=== PATIENT | male | born 1990 | race Caucasian/White ===

== ENCOUNTER 2024-02-26 14:34 | Observation (INO) | payer BC ==
--- NOTE | 2024-02-26 15:51 | ED ---
Nausea/Vomiting/Diarrhea HPI - General Source: patient, RN notes reviewed Mode of arrival: wheelchair Limitations: no limitations <Oriana Minaya - Last Filed: 02/26/24 15:51> <Migdalia Esparza - Last Filed: 02/29/24 16:33> - General Chief complaint: Nausea/Vomiting/Diarrhea Stated complaint: Flu like symptoms, dehydration Time Seen by Provider: 02/26/24 15:51 - History of Present Illness Initial comments: Quick [id number] male presenting with nausea/vomiting/diarrhea x 3 days. States he has not been able to keep anything down and feels as though he is dehydrated. (Oriana Minaya) 34-year-old male presenting with chief complaint of nausea vomiting and diarrhea. Symptoms have been ongoing for the last 3 to 4 days. He states that he is unable to keep down any food or fluids and is concerned that he may be dehydrated. He admits to generalized bodyaches. No cough congestion or sore throat. He admits to chills. No known fever. No localized abdominal pain. He does admit to daily marijuana use. (Migdalia Esparza) - Related Data Home Medications Medication Instructions Recorded Confirmed Albuterol Inhaler [Ventolin Hfa 2 puff INHALATION RT-Q6H PRN 02/27/24 02/27/24 Inhaler] Budesonide/Formoterol Fumarate 2 puff INHALATION RT-BID 02/27/24 02/27/24 [Symbicort 160-4.5 Mcg Inhaler] Dupilumab [Dupixent Pen] 300 mg SQ Q14D 02/27/24 02/27/24 Hydrocortisone Cream 1 applic TOPICAL BID PRN 02/27/24 02/27/24 [Hydrocortisone 1% Cream] Ketoconazole 2% Shampoo [Nizoral] 1 applic TOPICAL DIRECTED 02/27/24 02/27/24 Triamcinolone 0.1% Cream [Kenalog 1 applicatio TOPICAL BID PRN 02/27/24 02/27/24 0.1% Cream] Previous Rx's Medication Instructions Recorded Ondansetron Odt [Zofran Odt] 4 mg PO Q8HR PRN #20 tab 02/26/24 Acetaminophen Tab [Tylenol] 650 mg PO Q6HR PRN tab 02/27/24 Allergies Allergy/AdvReac Type Severity Reaction Status Date / Time No Known Allergies Allergy Verified 02/27/24 09:05 Review of Systems ROS Other: All systems not noted in ROS Statement are negative. <Oriana Minaya - Last Filed: 02/26/24 15:51> ROS Other: All systems not noted in ROS Statement are negative. <Migdalia Esparza - Last Filed: 02/29/24 16:33> ROS Statement: Those systems with pertinent positive or pertinent negative responses have been documented in the HPI. Past Medical History Past Medical History: Asthma Past Drug Use History: Marijuana <Oriana Minaya - Last Filed: 02/26/24 15:51> General Exam Limitations: no limitations <Oriana Minaya - Last Filed: 02/26/24 15:51> Limitations: no limitations General appearance: alert, in no apparent distress Head exam: Present: atraumatic, normocephalic, normal inspection Eye exam: Present: normal appearance, EOMI Neck exam: Present: normal inspection. Absent: meningismus Respiratory exam: Present: normal lung sounds bilaterally. Absent: respiratory distress, wheezes, rales, rhonchi, stridor Cardiovascular Exam: Present: regular rate, normal rhythm, normal heart sounds. Absent: systolic murmur, diastolic murmur, rubs, gallop, clicks GI/Abdominal exam: Present: soft. Absent: distended, tenderness, guarding, rebound, rigid Neurological exam: Present: alert, oriented X3 Psychiatric exam: Present: normal affect, normal mood Skin exam: Present: warm, dry <Radha Esparzatami - Last Filed: 02/29/24 16:33> - General Exam Comments Initial Comments: Visual Physical Exam Vital signs reviewed General: Well-appearing, nontoxic, no acute distress. Head: Normocephalic, atraumatic Eyes: PERRLA, EOMI ENT: Airway patent Chest: Nonlabored breathing Skin: No visual rash, normal skin tone Neuro: Alert and oriented 3 Musculoskeletal: No gross abnormalities (Oriana Minaya) Course Vital Signs 02/26/24 02/26/24 02/27/24 14:41 17:27 02:52 Temperature 97.6 F 98.0 F Pulse Rate 87 84 78 Respiratory 18 24 18 Rate Blood Pressure 150/107 129/97 137/84 O2 Sat by Pulse 100 100 96 Oximetry 02/27/24 08:49 Temperature 98 F Pulse Rate 86 Respiratory 18 Rate Blood Pressure 146/90 O2 Sat by Pulse 99 Oximetry Medical Decision Making <Oriana Minaya - Last Filed: 02/26/24 15:51> - Lab Data Result diagrams: 02/26/24 17:37 02/26/24 17:37 <IsaiasRadhatami - Last Filed: 02/29/24 16:33> - Medical Decision Making I completed the quick note portion of this chart signed Oriana Minaya PA-C (Oriana Minaya) Was pt. sent in by a medical professional or institution ([facility], [facility], urgent care, hospital, or residential...) When possible be specific @ -No Did you speak to anyone other than the patient for history (EMS, parent, family, police, friend...)? What history was obtained from this source @ -No Did you review nursing and triage notes (agree or disagree)? Why? @ -I reviewed and agree with nursing and triage notes Were old charts reviewed (outside hosp., previous admission, EMS record, old EKG, old radiological studies, urgent care reports/EKG's, residential records)? Report findings @ -No old charts were reviewed Differential Diagnosis (chest pain, altered mental status, abdominal pain women, abdominal pain men, vaginal bleeding, weakness, fever, dyspnea, syncope, headache, dizziness, GI bleed, back pain, seizure, CVA, palpatations, mental health, musculoskeletal)? @ -Differential includes gastroenteritis, cannabinoid hyperemesis syndrome, bowel obstruction, diverticulitis, C. difficile, this is not an all-inclusive list EKG interpreted by me (3pts min.). @ -As above X-rays interpreted by me (1pt min.). @ -None done CT interpreted by me (1pt min.). @ -None done U/S interpreted by me (1pt. min.). @ -Ultrasound shows unremarkable right upper quadrant What testing was considered but not performed or refused? (CT, X-rays, U/S, labs)? Why? @ -None What meds were considered but not given or refused? Why? @ -None Did you discuss the management of the patient with other professionals (professionals i.e. , [facility], [facility], lab, RT, psych nurse, social media community manager, molding sander, teacher, tactical response group officer, rn case manager hospice)? Give summary @ -My attending spoke with Dr. Bansal who accepts admission Was smoking cessation discussed for >3mins.? @ -No Was critical care preformed (if so, how long)? @ -No Were there social determinants of health that impacted care today? How? (Homelessness, low income, unemployed, alcoholism, drug addiction, transportation, low edu. Level, literacy, decrease access to med. care, care home, rehab)? @ -No Was there de-escalation of care discussed even if they declined (Discuss DNR or withdrawal of care, Hospice)? DNR status @ -No What co-morbidities impacted this encounter? (DM, HTN, Smoking, COPD, CAD, Cancer, CVA, ARF, Chemo, Hep., AIDS, mental health diagnosis, sleep apnea, morbid obesity)? @ -None Was patient admitted / discharged? Hospital course, mention meds given and route, prescriptions, significant lab abnormalities, going to OR and other pert inent info. @ -34-year-old male presenting with chief complaint of nausea vomiting and diarrhea ongoing for the last 3 to 4 days. Workup is initiated by triage patient is later placed in room and examined by myself. No leukocytosis or anemia. He is positive for COVID. Lactic acid 2.6. Anion gap 22 carbon dioxide 15. Patient is receiving IV fluids for dehydration. He is also receiving antiemetics. Bilirubin 1.7 AST 82 ALT 85, ultrasound is obtained which is unremarkable. Likely secondary to dehydration and mild starvation. Patient is still experiencing intractable nausea and vomiting after the use of antiemetics. He is unable to tolerate oral intake and will be admitted for observation. He is agreeable with this plan. I discussed this case with my attending Dr. Villalba Undiagnosed new problem with uncertain prognosis? @ -No Drug Therapy requiring intensive monitoring for toxicity (Heparin, Nitro, Insulin, Cardizem)? @ -No Were any procedures done? @ -No Diagnosis/symptom? @ -Intractable nausea and vomiting, metabolic acidosis, dehydration Acute, or Chronic, or Acute on Chronic? @ -Acute Uncomplicated (without systemic symptoms) or Complicated (systemic symptoms)? @ -Complicated Side effects of treatment? @ -No Exacerbation, Progression, or Severe Exacerbation? @ -No Poses a threat to life or bodily function? How? (Chest pain, [place], CO, pneumonia, PE, COPD, DKA, ARF, appy, cholecystitis, CVA, Diverticulitis, Homicidal, Suicidal, threat to staff... and all critical care pts) @ -Yes (Migdalia Esparza) - Lab Data Lab Results 02/26/24 02/26/24 02/26/24 Range/Units 16:45 17:37 17:37 WBC 8.6 (3.8-10.6) k/uL RBC 5.61 (4.30-5.90) m/uL Hgb 16.5 (13.0-17.5) gm/dL Hct 48.7 (39.0-53.0) % MCV 86.9 (80.0-100.0) fL MCH 29.5 (25.0-35.0) pg MCHC 33.9 (31.0-37.0) g/dL RDW 12.8 (11.5-15.5) % Plt Count 271 (150-450) k/uL MPV 7.7 Neutrophils % 76 % Lymphocytes % 14 % Monocytes % 6 % Eosinophils % 1 % Basophils % 0 % Neutrophils # 6.6 (1.3-7.7) k/uL Lymphocytes # 1.2 (1.0-4.8) k/uL Monocytes # 0.5 (0-1.0) k/uL Eosinophils # 0.1 (0-0.7) k/uL Basophils # 0.0 (0-0.2) k/uL Sodium 140 (137-145) mmol/L Potassium 4.7 (3.5-5.1) mmol/L Chloride 103 (98-107) mmol/L Carbon Dioxide 15 L (22-30) mmol/L Anion Gap 22 mmol/L BUN 23 H (9-20) mg/dL Creatinine 1.01 (0.66-1.25) mg/dL Est GFR (CKD-EPI)AfAm >90 (>60 ml/min/1.73 sqM) Est GFR (CKD-EPI)NonAf >90 (>60 ml/min/1.73 sqM) Glucose 114 H (74-99) mg/dL Lactic Ac Sepsis Rflx Plasma Lactic Acid Raghu (0.7-2.0) mmol/L Calcium 10.2 (8.4-10.2) mg/dL Total Bilirubin 1.7 H (0.2-1.3) mg/dL AST 82 H (17-59) U/L ALT 85 H (4-49) U/L Alkaline Phosphatase 118 (38-126) U/L Total Protein 9.1 H (6.3-8.2) g/dL Albumin 5.3 H (3.5-5.0) g/dL Lipase 130 (23-300) U/L Urine Color Urine Appearance (Clear) Urine pH (5.0-8.0) Ur Specific [place] (1.001-1.035) Urine Protein (Negative) Urine Glucose (UA) (Negative) Urine Ketones (Negative) Urine Blood (Negative) Urine Nitrite (Negative) Urine Bilirubin (Negative) Urine Urobilinogen (<2.0) mg/dL Ur Leukocyte Esterase (Negative) Urine RBC (0-5) /hpf Urine WBC (0-5) /hpf Urine Mucus (None) /hpf Hepatitis A IgM Ab (Nonreactive) Hep Bs Antigen (Nonreactive) Hep B Core IgM Ab (Nonreactive) Hep C IgG Ab (Nonreactive) Influenza Type A (PCR) Not Detected (Not Detectd) Influenza Type B (PCR) Not Detected (Not Detectd) RSV (PCR) Not Detected (Not Detectd) SARS-CoV-2 (PCR) Detected A (Not Detectd) 02/26/24 02/26/24 02/26/24 Range/Units 17:37 18:14 20:05 WBC (3.8-10.6) k/uL RBC (4.30-5.90) m/uL Hgb (13.0-17.5) gm/dL Hct (39.0-53.0) % MCV (80.0-100.0) fL MCH (25.0-35.0) pg MCHC (31.0-37.0) g/dL RDW (11.5-15.5) % Plt Count (150-450) k/uL MPV Neutrophils % % Lymphocytes % % Monocytes % % Eosinophils % % Basophils % % Neutrophils # (1.3-7.7) k/uL Lymphocytes # (1.0-4.8) k/uL Monocytes # (0-1.0) k/uL Eosinophils # (0-0.7) k/uL Basophils # (0-0.2) k/uL Sodium (137-145) mmol/L Potassium (3.5-5.1) mmol/L Chloride (98-107) mmol/L Carbon Dioxide (22-30) mmol/L Anion Gap mmol/L BUN (9-20) mg/dL Creatinine (0.66-1.25) mg/dL Est GFR (CKD-EPI)AfAm (>60 ml/min/1.73 sqM) Est GFR (CKD-EPI)NonAf (>60 ml/min/1.73 sqM) Glucose (74-99) mg/dL Lactic Ac Sepsis Rflx Y Plasma Lactic Acid Raghu 2.6 H* (0.7-2.0) mmol/L Calcium (8.4-10.2) mg/dL Total Bilirubin (0.2-1.3) mg/dL AST (17-59) U/L ALT (4-49) U/L Alkaline Phosphatase (38-126) U/L Total Protein (6.3-8.2) g/dL Albumin (3.5-5.0) g/dL Lipase (23-300) U/L Urine Color Urine Appearance (Clear) Urine pH (5.0-8.0) Ur Specific [place] (1.001-1.035) Urine Protein (Negative) Urine Glucose (UA) (Negative) Urine Ketones (Negative) Urine Blood (Negative) Urine Nitrite (Negative) Urine Bilirubin (Negative) Urine Urobilinogen (<2.0) mg/dL Ur Leukocyte Esterase (Negative) Urine RBC (0-5) /hpf Urine WBC (0-5) /hpf Urine Mucus (None) /hpf Hepatitis A IgM Ab Nonreactive (Nonreactive) Hep Bs Antigen Nonreactive (Nonreactive) Hep B Core IgM Ab Nonreactive (Nonreactive) Hep C IgG Ab Nonreactive (Nonreactive) Influenza Type A (PCR) (Not Detectd) Influenza Type B (PCR) (Not Detectd) RSV (PCR) (Not Detectd) SARS-CoV-2 (PCR) (Not Detectd) 02/26/24 02/26/24 Range/Units 20:37 20:50 WBC (3.8-10.6) k/uL RBC (4.30-5.90) m/uL Hgb (13.0-17.5) gm/dL Hct (39.0-53.0) % MCV (80.0-100.0) fL MCH (25.0-35.0) pg MCHC (31.0-37.0) g/dL RDW (11.5-15.5) % Plt Count (150-450) k/uL MPV Neutrophils % % Lymphocytes % % Monocytes % % Eosinophils % % Basophils % % Neutrophils # (1.3-7.7) k/uL Lymphocytes # (1.0-4.8) k/uL Monocytes # (0-1.0) k/uL Eosinophils # (0-0.7) k/uL Basophils # (0-0.2) k/uL Sodium (137-145) mmol/L Potassium (3.5-5.1) mmol/L Chloride (98-107) mmol/L Carbon Dioxide (22-30) mmol/L Anion Gap mmol/L BUN (9-20) mg/dL Creatinine (0.66-1.25) mg/dL Est GFR (CKD-EPI)AfAm (>60 ml/min/1.73 sqM) Est GFR (CKD-EPI)NonAf (>60 ml/min/1.73 sqM) Glucose (74-99) mg/dL Lactic Ac Sepsis Rflx Plasma Lactic Acid Raghu 2.0 (0.7-2.0) mmol/L Calcium (8.4-10.2) mg/dL Total Bilirubin (0.2-1.3) mg/dL AST (17-59) U/L ALT (4-49) U/L Alkaline Phosphatase (38-126) U/L Total Protein (6.3-8.2) g/dL Albumin (3.5-5.0) g/dL Lipase (23-300) U/L Urine Color Yellow Urine Appearance Clear (Clear) Urine pH 6.0 (5.0-8.0) Ur Specific [place] 1.027 (1.001-1.035) Urine Protein Trace H (Negative) Urine Glucose (UA) Negative (Negative) Urine Ketones 4+ H (Negative) Urine Blood Trace H (Negative) Urine Nitrite Negative (Negative) Urine Bilirubin Negative (Negative) Urine Urobilinogen <2.0 (<2.0) mg/dL Ur Leukocyte Esterase Negative (Negative) Urine RBC 3 (0-5) /hpf Urine WBC <1 (0-5) /hpf Urine Mucus Occasional H (None) /hpf Hepatitis A IgM Ab (Nonreactive) Hep Bs Antigen (Nonreactive) Hep B Core IgM Ab (Nonreactive) Hep C IgG Ab (Nonreactive) Influenza Type A (PCR) (Not Detectd) Influenza Type B (PCR) (Not Detectd) RSV (PCR) (Not Detectd) SARS-CoV-2 (PCR) (Not Detectd) Disposition <Oriana Minaya - Last Filed: 02/26/24 15:51> Is patient prescribed a controlled substance at d/c from ED?: No Time of Disposition: 00:34 <Migdalia Esparza - Last Filed: 02/29/24 16:33> Clinical Impression: COVID-19, Dehydration, Intractable nausea and vomiting, Metabolic acidosis Disposition: ADMITTED IP TO THIS HOSP Condition: Stable
[2024-02-26 17:47] LABS: Basophils % (A) 0 %; Eosinophils # (A) 0.1 k/uL (0-0.7); Eosinophils % (A) 1 %; HCT 48.7 % (39.0-53.0); HGB 16.5 gm/dL (13.0-17.5); Lymphocytes # (A) 1.2 k/uL (1.0-4.8); Lymphocytes % (A) 14 %; MCH 29.5 pg (25.0-35.0); MCHC 33.9 g/dL (31.0-37.0); MCV 86.9 fL (80.0-100.0); Mean Platelet Volume 7.7; Monocytes # (A) 0.5 k/uL (0-1.0); Monocytes % (A) 6 %; Neutrophils # (A) 6.6 k/uL (1.3-7.7); Neutrophils % (A) 76 %; Platelet Count 271 k/uL (150-450); RBC 5.61 m/uL (4.30-5.90); RDW 12.8 % (11.5-15.5); WBC 8.6 k/uL (3.8-10.6)
[2024-02-26 18:00] LABS: ALT 85 U/L (4-49); African American GFR (CKD) >90 (>60 ml/min/1.73 sqM); Anion Gap 22 mmol/L; Blood Urea Nitrogen 23 mg/dL (9-20); Calcium 10.2 mg/dL (8.4-10.2); Carbon Dioxide 15 mmol/L (22-30); Chloride 103 mmol/L (98-107); Glucose 114 mg/dL (74-99); Lipase 130 U/L (23-300); Non-African American GFR(CKD) >90 (>60 ml/min/1.73 sqM); Sodium 140 mmol/L (137-145); Total Bilirubin 1.7 mg/dL (0.2-1.3)
[2024-02-26 18:12] LABS: AST 82 U/L (17-59); Albumin 5.3 g/dL (3.5-5.0); Alkaline Phosphatase 118 U/L (38-126); Potassium 4.7 mmol/L (3.5-5.1); Total Protein 9.1 g/dL (6.3-8.2)
[2024-02-26] MEDS: SODIUM CHLORIDE 0.9% 1,000 ML IV STA (18:22)
[2024-02-26] MEDS: ONDANSETRON 4 MG/2 ML VIAL IVP STA (18:22)
[2024-02-26] MEDS: METOCLOPRAMIDE 5 MG/ML 2 ML VIAL IVP STA (20:02)
[2024-02-26] MEDS: SODIUM CHLORIDE 0.9% 1,000 ML IV ONE (20:03)
[2024-02-26 21:06] LABS: Appearance,Urine Clear (Clear); Bilirubin,Urine Negative (Negative); Blood,Urine Trace (Negative); Color,Urine Yellow; Glucose,Urine (UA) Negative (Negative); Ketones,Urine 4+ (Negative); Leukocyte Esterase,Urine Negative (Negative); Mucus,Urine Occasional /hpf; Nitrite,Urine Negative (Negative); Protein,Urine Trace (Negative); RBC,Urine 3 /hpf (0-5); Specific Gravity,Urine 1.027 (1.001-1.035); Urobilinogen,Urine <2.0 mg/dL (<2.0); WBC,Urine <1 /hpf (0-5)
[2024-02-26] MEDS: ACETAMINOPHEN ORAL SUSP 160 MG/5 ML CUP PO ONE (21:17)
--- NOTE | 2024-02-26 22:00 | US ---
EXAMINATION TYPE: US abdomen limited DATE OF EXAM: 02/26/2024 COMPARISON: NONE CLINICAL INDICATION: Male, 34 years old with history of RUQ; Flu like symptoms. Patient covid positiv e TECHNIQUE: Grayscale and color Doppler imaging of the right upper quadrant was performed. FINDINGS: EXAM MEASUREMENTS: Liver Length: 13.0 cm Gallbladder Wall: 0.2 cm CBD: Obscured by gas cm Right Kidney: 10.7 x 5.2 x 4.2 cm OCCUPATIONAL THERAPY SUPERVISOR NOTES:Limited due to overlying bowel gas Pancreas: Obscured by bowel gas Liver: wnl as best seen Gallbladder: wnl Evidence for sonographic Horn's sign: no CBD: Obscured by overlying bowel gas Right Kidney: wnl IMPRESSION: 1. Right upper quadrant ultrasound as visualized is unremarkable. [facility], , 02/26/2024 9:58 PM
[2024-02-26] MEDS: PROCHLORPERAZINE INJ 10 MG/2 ML VIAL IVP STA (23:26)
[2024-02-27] MEDS: diphenhydrAMINE 50 MG/ML 1 ML VIAL IVP STA (00:31)
[2024-02-27] MEDS ORDERED: ACETAMINOPHEN TAB 325 MG TAB PO PRN (00:32)
[2024-02-27] MEDS ORDERED: NALOXONE 0.4 MG/ML 1 ML VIAL IV PRN (00:32)
[2024-02-27] MEDS: SODIUM CHLORIDE 0.9% 1,000 ML IV SCH (00:52)
[2024-02-27 02:54] VITALS: RESP 18
[2024-02-27 03:12] LABS: Hepatitis A Antibody IgM Nonreactive (Nonreactive); Hepatitis B Core IgM Nonreactive (Nonreactive); Hepatitis B Surface Antigen Nonreactive (Nonreactive); Hepatitis C IgG Antibody Nonreactive (Nonreactive)
--- NOTE | 2024-02-27 03:22 | P.HPIM ---
History of Present Illness H&P Date: 02/27/24 Patient is a 34-year-old male with a PMH of asthma marijuana abuse who presents to the emergency room with complaints of nausea and vomiting. The patient reports that his symptoms started 3 to 4 days ago where him and his fiance both developed an upset stomach. She recovered within a day but his symptoms have persisted. He also reports being unable to tolerate any food or liquids during this time. Reports too many episodes of nonbloody nonbilious emesis to count. The patient does report a prior history of similar symptoms which at that time was attributed to cannabinoid hyperemesis syndrome. He does report daily heavy use of marijuana since he was 13 years old. He denied experiencing chest discomfort, shortness of breath, fever, chills, cough. Abdominal ultrasound in the emergency room was unremarkable with laboratory evaluation showing lactic acid 2.6, total bilirubin 1.7, AST 83, ALT 85, UA unremarkable, with hepatitis panel negative with CO2 15. The patient also tested positive for COVID-19. ED documentation reviewed and case discussed with ED provider. Review of systems: Pertinent positives and negatives as discussed in HPI, a complete review of systems was performed and all other systems are negative. Physical examination: Vital signs reviewed General: non toxic, no distress, appears at stated age, normal weight Derm: no unusual rashes/lesions, warm Head: atraumatic, normocephalic, symmetric Eyes: EOMI, no lid lag, anicteric sclera, pupils equal round reactive to light ENT: Nose and ears atraumatic Neck: No cervical lymphadenopathy, trachea midline, supple Mouth: no lip lesion, mucus membranes moist Cardiovascular: S1S2 reg, no murmur, positive dorsalis pedis pulse bilateral, no edema Lungs: CTA bilateral, no rhonchi, no rales, no accessory muscle use Abdominal: soft, nontender to palpation, no guarding Ext: muscle strength 5 out of 5 in all 4 extremities grossly, no gross muscle atrophy, no contractures, Neuro: CN II-XI grossly intact, no gross focal neuro deficits Psych: Alert, oriented, appropriate affect Assessment: Intractable nausea and vomiting, suspect secondary to cannabinoid hyperemesis syndrome COVID-19 positive, patient currently denying chest discomfort, cough, fever Lactic acidosis Abnormal LFTs Prerenal azotemia Imaging: Abdominal ultrasound the emergency room was unremarkable Data Review: Laboratory evaluation showing lactic acid 2.6, total bilirubin 1.7, AST 83, ALT 85, UA unremarkable, with hepatitis panel negative with CO2 15. The patient also tested positive for COVID-19. Plan: Strongly advised patient on importance of cessation from marijuana use Continue with antiemetics Continue IV fluids normal saline 75 mL/h Monitor lactic acid levels for resolution Monitor LFTs DVT prophylaxis: Lovenox subcu The patient is admitted with an anticipated less than 2 midnight stay for evaluation of nausea and vomiting CODE STATUS: Full Code Discussed with: Patient Anticipated discharge place: Home Past Medical History Past Medical History: Asthma Past Drug Use History: Marijuana Medications and Allergies Home Medications Medication Instructions Recorded Confirmed Type Ondansetron Odt [Zofran Odt] 4 mg PO Q8HR PRN #20 tab 02/26/24 Rx Allergies Allergy/AdvReac Type Severity Reaction Status Date / Time No Known Allergies Allergy Verified 02/26/24 14:44 Physical Exam Vitals: Vital Signs Temp Pulse Resp BP Pulse Ox 02/27/24 02:52 98.0 F 78 18 137/84 96 02/26/24 17:27 84 24 129/97 100 02/26/24 14:41 97.6 F 87 18 150/107 100 Intake and Output 02/26/24 02/26/24 02/27/24 14:59 22:59 06:59 Other: Voiding Method Toilet Weight 70.307 kg Results CBC & Chem 7: 02/26/24 17:37 02/26/24 17:37 Labs: Abnormal Lab Results - Last 24 Hours (Table) 02/26/24 02/26/24 02/26/24 Range/Units 16:45 17:37 17:37 Carbon Dioxide 15 L (22-30) mmol/L BUN 23 H (9-20) mg/dL Glucose 114 H (74-99) mg/dL Plasma Lactic Acid Raghu 2.6 H* (0.7-2.0) mmol/L Total Bilirubin 1.7 H (0.2-1.3) mg/dL AST 82 H (17-59) U/L ALT 85 H (4-49) U/L Total Protein 9.1 H (6.3-8.2) g/dL Albumin 5.3 H (3.5-5.0) g/dL Urine Protein (Negative) Urine Ketones (Negative) Urine Blood (Negative) Urine Mucus (None) /hpf SARS-CoV-2 (PCR) Detected A (Not Detectd) 02/26/24 Range/Units 20:50 Carbon Dioxide (22-30) mmol/L BUN (9-20) mg/dL Glucose (74-99) mg/dL Plasma Lactic Acid Raghu (0.7-2.0) mmol/L Total Bilirubin (0.2-1.3) mg/dL AST (17-59) U/L ALT (4-49) U/L Total Protein (6.3-8.2) g/dL Albumin (3.5-5.0) g/dL Urine Protein Trace H (Negative) Urine Ketones 4+ H (Negative) Urine Blood Trace H (Negative) Urine Mucus Occasional H (None) /hpf SARS-CoV-2 (PCR) (Not Detectd)
[2024-02-27] MEDS: ONDANSETRON 4 MG/2 ML VIAL IVP PRN (05:58)
[2024-02-27] MEDS: ALPRAZolam 0.25 MG TAB PO STA (06:18)
[2024-02-27 08:52] VITALS: PULSE 86; TEMP 98
[2024-02-27] MEDS: ENOXAPARIN 40 MG/0.4 ML SYRINGE SQ SCH (08:52)
[2024-02-27 11:52] VITALS: BP 136/88
--- NOTE | 2024-02-27 13:13 | P.DS ---
Providers Date of admission: 02/27/24 00:33 Expected date of discharge: 02/27/24 Attending physician: Bay Bansal MD Primary care physician: Stated None Hospital Course: 34-year-old male with a PMH of asthma marijuana abuse who presents to the emergency room with complaints of nausea and vomiting. The patient reports that his symptoms started 3 to 4 days ago where him and his fiance both developed an upset stomach. She recovered within a day but his symptoms have persisted. He also reports being unable to tolerate any food or liquids during this time. Reports too many episodes of nonbloody nonbilious emesis to count. The patient does report a prior history of similar symptoms which at that time was attributed to cannabinoid hyperemesis syndrome. He does report daily heavy use of marijuana since he was 13 years old. He denied experiencing chest discomfort, shortness of breath, fever, chills, cough. Abdominal ultrasound in the emergency room was unremarkable with laboratory evaluation showing lactic acid 2.6, total bilirubin 1.7, AST 83, ALT 85, UA unremarkable, with hepatitis panel negative with CO2 15. The patient also tested positive for COVID-19. Patient was started on IV hydration and antiemetics and admitted for observation. 02/26 Patient was seen and examined. Feeling well. Tolerating PO intake well. Nausea and vomiting improved. Wanting to be discharged. We discussed his abnormal lab work including elevated liver enzymes, he states he will follow up with his PCP for further workup. Vital signs reviewed General: non toxic, no distress, appears at stated age, normal weight Derm: no unusual rashes/lesions, warm Head: atraumatic, normocephalic, symmetric Eyes: EOMI, no lid lag, anicteric sclera ENT: Nose and ears atraumatic Neck: No cervical lymphadenopathy, trachea midline, supple Mouth: no lip lesion, mucus membranes moist Cardiovascular: S1S2 reg, no murmur Lungs: CTA bilateral, no rhonchi, no rales, no accessory muscle use Ext: muscle strength 5 out of 5 in all 4 extremities grossly, no gross muscle atrophy, no contractures, Neuro: no gross focal neuro deficits Psych: Alert, oriented, appropriate affect Discharge Diagnosis: Intractable nausea and vomiting, suspect secondary to cannabinoid hyperemesis syndrome COVID-19 positive, patient currently denying chest discomfort, cough, fever Lactic acidosis Transaminitis Prerenal azotemia This complex discharge took 35 minutes to complete. Patient Condition at Discharge: Stable Plan - Discharge Summary New Discharge Prescriptions: New Ondansetron Odt [Zofran Odt] 4 mg PO Q8HR PRN #20 tab PRN Reason: Nausea Acetaminophen Tab [Tylenol] 650 mg PO Q6HR PRN tab PRN Reason: Mild Pain Or Fever > 100.5 Continue Hydrocortisone Cream [Hydrocortisone 1% Cream] 1 applic TOPICAL BID PRN PRN Reason: PSORIASIS Ketoconazole 2% Shampoo [Nizoral] 1 applic TOPICAL DIRECTED Budesonide/Formoterol Fumarate [Symbicort 160-4.5 Mcg Inhaler] 2 puff INHALATION RT-BID Triamcinolone 0.1% Cream [Kenalog 0.1% Cream] 1 applicatio TOPICAL BID PRN PRN Reason: PSORIASIS Dupilumab [Dupixent Pen] 300 mg SQ Q14D Albuterol Inhaler [Ventolin Hfa Inhaler] 2 puff INHALATION RT-Q6H PRN PRN Reason: Shortness Of Breath Discharge Medication List Ondansetron Odt [Zofran Odt] 4 mg PO Q8HR PRN #20 tab 02/26/24 [Rx] Acetaminophen Tab [Tylenol] 650 mg PO Q6HR PRN tab 02/27/24 [Rx] Albuterol Inhaler [Ventolin Hfa Inhaler] 2 puff INHALATION RT-Q6H PRN 02/27/24 [History] Budesonide/Formoterol Fumarate [Symbicort 160-4.5 Mcg Inhaler] 2 puff INHALATION RT-BID 02/27/24 [History] Dupilumab [Dupixent Pen] 300 mg SQ Q14D 02/27/24 [History] Hydrocortisone Cream [Hydrocortisone 1% Cream] 1 applic TOPICAL BID PRN 02/27/24 [History] Ketoconazole 2% Shampoo [Nizoral] 1 applic TOPICAL DIRECTED 02/27/24 [History] Triamcinolone 0.1% Cream [Kenalog 0.1% Cream] 1 applicatio TOPICAL BID PRN 02/26 [History] Follow up Appointment(s)/Referral(s): [facility] [NON-STAFF] - 1-2 days [facility] [NON-STAFF] - 1-2 days None,Stated [Primary Care Provider] - 1-2 days Discharge/Stand Alone Forms: Area [facility]Ps
== END 2024-02-27 11:50 | disposition home or self-care (01) ==
LOC: EC 14:34 → 6NMEDSUR 02-27 00:33
PROVIDERS: ADMIT Internal Medicine; ATTEND Internal Medicine
DX: U07.1 COVID-19 (principal); E87.20 Acidosis, unspecified; E86.0 Dehydration; F12.10 Cannabis abuse, uncomplicated; J45.909 Unspecified asthma, uncomplicated; R79.89 Other specified abnormal findings of blood chemistry; R74.01 Elevation of levels of liver transaminase levels; Z79.51 Long term (current) use of inhaled steroids; Z79.620 Long term (current) use of immunosuppressive biologic; Z11.59 Encounter for screening for other viral diseases
CPT/HCPCS: 96376; 96361 ×2; 96374; 96375 ×2; 99285; 36415; 80053; 80074; 83605; 83690; 85025; 81001; 87636; 76705; G0378; J1200; J0780; J2765; J2405 ×2